=== PATIENT | female | born 1950 | race Two or more races ===

== ENCOUNTER 2016-12-30 15:48 | Emergency (ER) | payer MEDICARE, OTHER ==
[~2016-12-30] VITALS: Ht 160 cm; Wt 86.2 kg
--- NOTE | 2016-12-30 15:57 | NUR ---
PT BIB SELF C/O LEFT 1ST GREAT TOE REDNESS/PAIN X 2 WEEKS CUT NAILS X 2 WEEKS AGO. PLACED ON MONITOR. GOWNED PT. AWAITING MD ORDER
--- NOTE | 2016-12-30 16:08 | NUR ---
FÉLIX CHRONIC CARE NURSE AT BEDSIDE FOR EVAL
--- NOTE | 2016-12-30 16:13 | NUR ---
RAC #20 IV ACCESS. BLOOD SAMPLE COLLECTED SENT TO LAB
--- NOTE | 2016-12-30 16:14 | NUR ---
EKG IN PROGRESS
[2016-12-30 16:18] LABS: HEMATOCRIT 50 % (33-45); HEMOGLOBIN 16.2 g/dL (11.5-14.8); MEAN CORPUSCULAR VOLUME 93 fL (82-100); RED BLOOD CELL COUNT(AUTO) 5.37 MIL/uL (4.0-5.2); WHITE BLOOD COUNT (AUTO) 8.7 K/uL (4.3-11.0)
[2016-12-30 16:19] LABS: BASOPHILS % (AUTO) 0.7 % (0.0-2.0); EOSINOPHILS % (AUTO) 1.5 % (0.0-6.0); LYMPHOCYTES % (AUTO) 36.3 % (20.0-44.0); MEAN CORPUSCULAR HEMOGLOBIN 30 PG (26.0-33.0); MEAN CORPUSCULAR HGB CONC 33 g/dl (31.0-36.0); MONOCYTES % (AUTO) 7.6 % (2.0-12.0); NEUTROPHILS % (AUTO) 53.9 % (43.0-81.0); PLATELET COUNT (AUTO) 256 /CMM (150-450); RDW COEFFICIENT OF VARIATION 12.2 (11.5-15.0)
[2016-12-30 16:20] LABS: BASOPHILS # (AUTO) 0.1 /CMM (0.0-0.2); EOSINOPHILS # (AUTO) 0.1 /CMM (0.0-0.7); LYMPHOCYTES # (AUTO) 3.1 /CMM (0.8-4.8); MONOCYTES # (AUTO) 0.7 /CMM (0.1-1.30); NEUTROPHILS # (AUTO) 4.7 /CMM (1.8-8.9)
--- NOTE | 2016-12-30 16:24 | NUR ---
SSIS ETL DEVELOPER AT BEDSIDE
[2016-12-30 16:31] LABS: INR 0.95 (0.87-1.13); PROTHROMBIN TIME 9.9 SECS (9.5-12.7)
--- NOTE | 2016-12-30 16:32 | NUR ---
URINE SAMPLE COLLECTED SENT TO LAB
--- NOTE | 2016-12-30 16:33 | NUR ---
PT GETTING ULTRA SOUND BEFORE CT SCAN.
[2016-12-30 16:34] LABS: ALANINE AMINOTRANSFERASE 16 U/L (12-78); ALBUMIN 3.6 g/dL (3.4-5.0); ALKALINE PHOSPHATASE 96 U/L (46-116); ASPARTATE AMINOTRANSFERASE 11 U/L (15-37); BILIRUBIN,DIRECT 0.1 mg/dL (0.0-0.2); BILIRUBIN,TOTAL 0.5 mg/dL (0.2-1.0); CALCIUM, SERUM 9.4 mg/dL (8.5-10.1); CARBON DIOXIDE 27 mmol/L (21-32); CHLORIDE 98 mmol/L (98-107); POTASSIUM 4.5 mmol/L (3.5-5.1); SODIUM SERUM 134 mmol/L (136-145); TOTAL PROTEIN, SERUM 7.8 g/dL (6.4-8.2); UREA NITROGEN, BLOOD 20 mg/dL (7-18)
[2016-12-30 16:35] LABS: TROPONIN I < 0.017 ng/mL (0.00-0.056)
[2016-12-30 17:06] LABS: GLUCOSE 550 mg/dL (74-106)
[2016-12-30 17:11] LABS: APPEARANCE,URINE CLOUDY (CLEAR); BILIRUBIN,URINE NEGATIVE (NEGATIVE); BLOOD, URINE 1+ Ery/uL (NEGATIVE); COLOR,URINE YELLOW (YELLOW); KETONES,URINE TRACE (NEGATIVE); LEUKOCYTE ESTERASE ,URINE 1+ (NEGATIVE); NITRITE, URINE NEGATIVE (NEGATIVE); PROTEIN,URINE NEGATIVE (NEGATIVE); UGLUCOSE 3+ mg/dL (NEGATIVE); UROBILINOGEN,URINE 0.2 EU/dL (0.2)
[2016-12-30 17:21] LABS: BACTERIA,URINE Many /HPF (None Seen); RBC,URINE NONE SEEN /HPF (0-2); SQUAMOUS EPITHELIAL CELL,UR Few /HPF (None Seen); WBC,URINE TOO NUMEROUS TO COUN /HPF (0-3)
[2016-12-30 18:00] VITALS: BP 125/78
== END 2016-12-30 18:00 | disposition home or self-care (01) ==
LOC: ER 15:50
DX: L03.032 Cellulitis of left toe (principal); E11.65 Type 2 diabetes mellitus with hyperglycemia; N39.0 Urinary tract infection, site not specified; I10 Essential (primary) hypertension; R51 Headache
CPT/HCPCS: 36415; 70450; 71010; 76705; 80048; 80076; 81001; 84484; 85025; 85730; 87086; 93005; 99285; A4606; 81000-TC; 87186-TC; Z7610

== ENCOUNTER 2018-08-27 14:44 | Emergency (ER) | payer MEDICARE, OTHER ==
[~2018-08-27] VITALS: Ht 160 cm; Wt 90.3 kg
[2018-08-27 14:44] VITALS: BP 101/60
== END 2018-08-27 16:20 | disposition home or self-care (01) ==
LOC: ER 14:49
DX: S02.5XXA Fracture of tooth (traumatic), initial encounter for closed fracture (principal); K02.9 Dental caries, unspecified; E11.9 Type 2 diabetes mellitus without complications; I10 Essential (primary) hypertension; X58.XXXA Exposure to other specified factors, initial encounter; Y93.89 Activity, other specified; Y92.89 Other specified places as the place of occurrence of the external cause; Y99.8 Other external cause status

== ENCOUNTER 2020-02-07 10:32 | Inpatient (IN) | payer MEDICARE, OTHER ==
[~2020-02-07] VITALS: Ht 162.6 cm; Wt 82.1 kg
--- NOTE | 2020-02-07 10:35 | NUR ---
PT BIB DAUGHTER FROM HOME C/O DIZZINESS FOR 2 WEEKS, PT IS AAOX4, NOT IN RESPIRATORY DISTRESS, V/S STABLE, KEPT RESTED AND COMFORTABLE. WILL CONTINUE TO MONITOR.
--- NOTE | 2020-02-07 10:45 | NUR ---
SEEN AND EXAMINED BY .
--- NOTE | 2020-02-07 10:55 | NUR ---
IV LINE ESTABLISHED BLOOD DRAWN AND SENT TO LAB.
[2020-02-07] MEDS ORDERED: INSULIN REGULAR, HUMAN 100 UNIT/ML 10 ML VIAL ONE (10:56)
[2020-02-07 11:00] LABS: BASOPHILS # (AUTO) 0.1 /CMM (0.0-0.2); BASOPHILS % (AUTO) 1.1 % (0.0-2.0); EOSINOPHILS % (AUTO) 1.4 % (0.0-6.0); HEMATOCRIT 44 % (33-45); HEMOGLOBIN 14.5 g/dL (11.5-14.8); LYMPHOCYTES # (AUTO) 2.7 /CMM (0.8-4.8); LYMPHOCYTES % (AUTO) 37.6 % (20.0-44.0); MEAN CORPUSCULAR HGB CONC 33 g/dl (31.0-36.0); MEAN CORPUSCULAR VOLUME 93 fL (82-100); MONOCYTES # (AUTO) 0.6 /CMM (0.1-1.30); MONOCYTES % (AUTO) 8.8 % (2.0-12.0); NEUTROPHILS # (AUTO) 3.6 /CMM (1.8-8.9); NEUTROPHILS % (AUTO) 51.1 % (43.0-81.0); PLATELET COUNT (AUTO) 219 /CMM (150-450); RED BLOOD CELL COUNT(AUTO) 4.71 MIL/uL (4.0-5.2); WHITE BLOOD COUNT (AUTO) 7.1 K/uL (4.3-11.0)
[2020-02-07] MEDS ORDERED: INSULIN REGULAR, HUMAN 100 UNIT/ML 10 ML VIAL SQ ONE (11:00)
[2020-02-07] MEDS ORDERED: IV NS 0.9% 1,000 ML BAG IV ONE (11:00)
--- NOTE | 2020-02-07 11:02 | NUR ---
CALLED MELLISA [phone] HE WILL BE PAGED.
--- NOTE | 2020-02-07 11:15 | NUR ---
MELLISA SPEAKING WITH Remy FRIEND
[2020-02-07 11:18] LABS: CALCIUM, SERUM 9.2 mg/dL (8.5-10.1); CARBON DIOXIDE 24 mmol/L (21-32); CHLORIDE 97 mmol/L (98-107); CREATININE 1.1 mg/dL (0.6-1.3); SODIUM SERUM 132 mmol/L (136-145); UREA NITROGEN, BLOOD 27 mg/dL (7-18)
[2020-02-07 11:19] LABS: GLUCOSE 507 mg/dL (74-106)
--- NOTE | 2020-02-07 11:45 | NUR ---
REPORT GIVEN TO JESSIE KRUSE FOR ELIAS.
--- NOTE | 2020-02-07 12:00 | NUR ---
URINAL GIVEN BUT UNABLE TO PROVIDE URINE SPECIMEN THIS TIME.
--- NOTE | 2020-02-07 12:55 | NUR ---
ADMITTED TO FLOOR,SEEMS ALERT,STATES WEAK AND HAS NOT AMBULATED FOR A FEW DAYS,POOR HISTORIAN,CALLED DTR.AND SHE WELL POOR HISTORIAN.
[2020-02-07] MEDS ORDERED: ACETAMINOPHEN 325 MG TABLET PO PRN (14:30)
[2020-02-07 14:45] VITALS: BP 137/76
[2020-02-07] MEDS: LOSARTAN POTASSIUM 50 MG TABLET PO SCH (15:27)
[2020-02-07] MEDS: IV NS 0.9% 1,000 ML IV PRN (15:27)
[2020-02-07] MEDS: PANTOPRAZOLE 40 MG TABLET.DR PO SCH (15:27)
[2020-02-07 15:30] LABS: CHOLESTEROL 208 mg/dL (<200); HDL CHOLESTEROL 51 mg/dL (40-60); LDL 135 mg/dL (0-99); TRIGLYCERIDES 146 mg/dL (30-150)
[2020-02-07] MEDS ORDERED: DEXTROSE 50%-WATER 50 ML DISP.SYRIN IV PRN (15:30)
[2020-02-07 16:00] VITALS: BP 103/57
[2020-02-07] MEDS ORDERED: ONDANSETRON HCL/PF 4 MG/2 ML VIAL IVP PRN (16:00)
[2020-02-07] MEDS: BLOOD SUGAR DIAGNOSTIC 1 EACH STRIP IN SCH ×2 (17:50→22:27)
[2020-02-07] MEDS: METFORMIN 500 MG TABLET PO SCH (17:56)
[2020-02-07] MEDS: INSULIN REGULAR, HUMAN 100 UNIT/ML 3 ML VIAL SQ PRN ×2 (17:58→22:27)
--- NOTE | 2020-02-07 18:45 | NUR ---
FREELANCE COPYWRITER REPORTS NO VOID SINCE ADMISSION TO FLOOR AT 1300.PT. STATES NO PRESSURE TO VOID.PLACED ON BEDPAN.RN HOWIE SHIFT TO CHECK PT. WITH BLADDER SCANNER.
--- NOTE | 2020-02-07 19:30 | NUR ---
MS RN OPENING NOTES PATIENT AWAKE IN BED. A/OX4. ON RA. NO S/S OF ACUTE RESPIRATORY DISTRESS; BREATHING IS EVEN AND UNLABORED. NO C/O PAIN AT THIS TIME. IV PRESENT ON RIGHT HAND, SIZE 20, INTACT & PATENT WITH NS RUNNING AT 100 ML/HR. SAFETY MEASURES IN PLACE AND PATIENT'S NEED MET. BED LOCKED, ALARM ON, SIDE RAILS X2, CALL LIGHT WITHIN REACH. WILL CONTINUE TO MONITOR.
[2020-02-07 20:00] VITALS: BP_SYST 101; BP_DIAS 51; BP_DIAS 57
[2020-02-07 20:51] LABS: BASOPHILS # (AUTO) 0.1 /CMM (0.0-0.2); BASOPHILS % (AUTO) 0.7 % (0.0-2.0); EOSINOPHILS % (AUTO) 2.1 % (0.0-6.0); HEMATOCRIT 39 % (33-45); HEMOGLOBIN 13.2 g/dL (11.5-14.8); LYMPHOCYTES # (AUTO) 3.5 /CMM (0.8-4.8); LYMPHOCYTES % (AUTO) 49.1 % (20.0-44.0); MEAN CORPUSCULAR HGB CONC 33 g/dl (31.0-36.0); MEAN CORPUSCULAR VOLUME 91 fL (82-100); MONOCYTES # (AUTO) 0.6 /CMM (0.1-1.30); MONOCYTES % (AUTO) 8.5 % (2.0-12.0); NEUTROPHILS # (AUTO) 2.8 /CMM (1.8-8.9); NEUTROPHILS % (AUTO) 39.6 % (43.0-81.0); PLATELET COUNT (AUTO) 201 /CMM (150-450); RED BLOOD CELL COUNT(AUTO) 4.33 MIL/uL (4.0-5.2); WHITE BLOOD COUNT (AUTO) 7.1 K/uL (4.3-11.0)
[2020-02-07 21:23] LABS: CALCIUM, SERUM 8.6 mg/dL (8.5-10.1); CREATININE 1.2 mg/dL (0.6-1.3); MAGNESIUM 1.9 mg/dL (1.8-2.4); POTASSIUM 3.7 mmol/L (3.5-5.1)
[2020-02-07] MEDS ORDERED: INSULIN GLARGINE, 100 UNIT/ML CARTRIDGE SQ SCH (22:00)
[2020-02-07] MEDS: ATORVASTATIN 10 MG TABLET PO SCH (22:20)
--- NOTE | 2020-02-08 00:30 | NUR ---
MS RN NOTES ASSISTED PATIENT TO BATHROOM. PATIENT HAD AN EPISODE OF INCONTINENCE; PATIENT ASKED TO THROW AWAY UNDERWEAR IN TRASH. DOCUMENTED IN BELONGINGS LIST
[2020-02-08] MEDS: IV NS 0.9% 1,000 ML IV PRN ×2 (01:20→19:34)
[2020-02-08 02:43] LABS: APPEARANCE,URINE SL CLOUDY (CLEAR); BILIRUBIN,URINE NEGATIVE (NEGATIVE); BLOOD, URINE NEGATIVE Ery/uL (NEGATIVE); COLOR,URINE YELLOW (YELLOW); KETONES,URINE NEGATIVE (NEGATIVE); LEUKOCYTE ESTERASE ,URINE NEGATIVE (NEGATIVE); NITRITE, URINE NEGATIVE (NEGATIVE); PH,URINE 6.5 (5.0-8.0); PROTEIN,URINE NEGATIVE (NEGATIVE); UGLUCOSE >=1000 mg/dL (NEGATIVE); UROBILINOGEN,URINE 0.2 EU/dL (0.2)
[2020-02-08 02:53] LABS: BACTERIA,URINE Few /HPF (None Seen); RBC,URINE 0-2 /HPF (0-2); SQUAMOUS EPITHELIAL CELL,UR Few /HPF (None Seen)
[2020-02-08] MEDS: BLOOD SUGAR DIAGNOSTIC 1 EACH STRIP IN SCH ×4 (06:48→21:04)
[2020-02-08] MEDS: INSULIN REGULAR, HUMAN 100 UNIT/ML 3 ML VIAL SQ PRN ×4 (06:50→21:06)
--- NOTE | 2020-02-08 07:30 | NUR ---
RN OPENING NOTES RECEIVED PATIENT IN BED RESTING. A/OX4, ABLE TO MAKE NEEDS KNOWN. NOT IN ANY FORM OF DISTRESS. NO SOB. DENIED PAIN OR DISCOMFORT AT THIS TIME. IV ACCESS INTACT AND PATENT. KEPT PATIENT SAFE AND COMFORTABLE. BED IN LOW/LOCKED POSITION, SIDERAILS UPX2, CALL LIGHT IN REACH. WILL CONT TO MONITOR ACCORDINGLY.
--- NOTE | 2020-02-08 07:41 | NUR ---
MS RN CLOSING NOTES PATIENT AWAKE IN BED. A/OX4. ON RA. NO S/S OF ACUTE RESPIRATORY DISTRESS; BREATHING IS EVEN AND UNLABORED. NO C/O PAIN AT THIS TIME. IV PRESENT ON RIGHT HAND, SIZE 20, INTACT & PATENT WITH NS RUNNING AT 100 ML/HR. SAFETY MEASURES IN PLACE AND PATIENT'S NEED MET. BED LOCKED, ALARM ON, SIDE RAILS X2, CALL LIGHT WITHIN REACH. WILL ENDORSE TO DAY SHIFT RN PLAN OF CARE.
[2020-02-08 08:00] VITALS: BP 134/68
[2020-02-08] MEDS: METFORMIN 500 MG TABLET PO SCH (08:35)
[2020-02-08] MEDS: PANTOPRAZOLE 40 MG TABLET.DR PO SCH (08:35)
[2020-02-08] MEDS: LOSARTAN POTASSIUM 50 MG TABLET PO SCH (08:35)
--- NOTE | 2020-02-08 14:00 | NUR ---
RN NOTES PATIENT REFUSED TO PUT DVT PUMPS ON. EXPLAINED RISK AND BENEFITS BUT STILL REFUSED.
[2020-02-08 16:00] VITALS: BP 130/84
[2020-02-08] MEDS ORDERED: ENOXAPARIN SODIUM 40 MG/0.4 ML DISP.SYRIN SQ SCH (19:00)
--- NOTE | 2020-02-08 19:25 | NUR ---
MS RN OPEN NOTES PATIENT IS TALKING ON THE PHONE IN BED. A/O X4. ON RA, NO SOB/ ACUTE RESPIRATORY DISTRESS NOTED. APPEARS COMFORTABLE/ NO COMPLAINTS OF PAIN AT THE MOMENT. BED IS IN LOWEST LOCKED POSITION WITH SIDE RAILS UP X2, SEMI FOWLERS. CALL LIGHT IS WITHIN REACH. WILL CONTINUE TO MONITOR.
--- NOTE | 2020-02-08 19:30 | NUR ---
RN CLOSING NOTES PATIENT IN STABLE CONDITION. ALL NEEDS ATTENDED AND PROVIDED. ALL DUE MEDS GIVEN ORDERED. ASSISTED WITH ADLS. KEPT PATIENT SAFE AND COMFORTABLE. BED IN LOW/LOCKED POSITION, SIDERAILS UPX 2. CALL LIGHT IN REACH. ENDORSED ACCORDINGLY.
[2020-02-08 20:00] VITALS: BP 138/72
[2020-02-08] MEDS: ATORVASTATIN 10 MG TABLET PO SCH (21:04)
[2020-02-08] MEDS ORDERED: INSULIN GLARGINE, 100 UNIT/ML CARTRIDGE SQ SCH (22:00)
[2020-02-09 06:45] LABS: BASOPHILS # (AUTO) 0.1 /CMM (0.0-0.2); BASOPHILS % (AUTO) 0.7 % (0.0-2.0); EOSINOPHILS % (AUTO) 4.1 % (0.0-6.0); HEMATOCRIT 42 % (33-45); LYMPHOCYTES # (AUTO) 3.6 /CMM (0.8-4.8); LYMPHOCYTES % (AUTO) 48.7 % (20.0-44.0); MEAN CORPUSCULAR HGB CONC 33 g/dl (31.0-36.0); MEAN CORPUSCULAR VOLUME 92 fL (82-100); MONOCYTES # (AUTO) 0.6 /CMM (0.1-1.30); MONOCYTES % (AUTO) 7.5 % (2.0-12.0); NEUTROPHILS # (AUTO) 2.9 /CMM (1.8-8.9); PLATELET COUNT (AUTO) 207 /CMM (150-450); RED BLOOD CELL COUNT(AUTO) 4.57 MIL/uL (4.0-5.2); WHITE BLOOD COUNT (AUTO) 7.4 K/uL (4.3-11.0)
--- NOTE | 2020-02-09 06:46 | NUR ---
MS RN CLOSE NOTES PATIENT IS LAYING IN BED. A/OX4. ON RA, NO SOB/ ACUTE RESPIRATORY DISTRESS NOTED. IV ON RIGHT HAND #20G IS PATENT AND INTACT RUNNING NS @50MLS/HR. PATIENT IS AMBULATORY WITH ASSIST. APPEARS COMFORTABLE/ NO COMPLAINTS OF PAIN AT THE MOMENT. ALL ACCUCHECKS DONE. BED IS IN LOWEST LOCKED POSITION WITH SIDE RAILS UP X2, SEMI FOWLERS. CALL LIGHT IS WITHIN REACH. WILL ENDORSE TO AM NURSE.
[2020-02-09] MEDS: BLOOD SUGAR DIAGNOSTIC 1 EACH STRIP IN SCH ×2 (06:50→12:42)
[2020-02-09 06:52] LABS: CALCIUM, SERUM 9.1 mg/dL (8.5-10.1); CREATININE 0.8 mg/dL (0.6-1.3); POTASSIUM 3.5 mmol/L (3.5-5.1)
--- NOTE | 2020-02-09 07:30 | NUR ---
MS JESSIE Open Notes Patient is in bed A/O x 4 calm and cooperative. No signs of distress and no shortness of breath. IV R hand #20 intact and patent infusing NS at 50 mls/hr. No complaints of pain at this moment. Safety measures are applied bed is in low position side rails up x 2 for safety. Call light is within reach. Will continue to monitor.
[2020-02-09 08:00] VITALS: BP 140/71
[2020-02-09] MEDS: PANTOPRAZOLE 40 MG TABLET.DR PO SCH (08:41)
[2020-02-09 08:42] VITALS: BP 140/71
[2020-02-09] MEDS: LOSARTAN POTASSIUM 50 MG TABLET PO SCH (08:42)
[2020-02-09] MEDS ORDERED: METFORMIN 500 MG TABLET PO SCH (09:00)
[2020-02-09] MEDS: INSULIN REGULAR, HUMAN 100 UNIT/ML 3 ML VIAL SQ PRN (12:45)
--- NOTE | 2020-02-09 15:19 | NUR ---
RN MS NOTES PT AWAKE, ALERT AND ORIENTED, INDEPENDENT WITH ADL'S, DENIES PAIN, BREATHING PATTERN NORMAL, PT SEEN BY DR. PAK, DISCHARGE ORDER GIVEN, DISCHARGE AND MEDICATION INSTRUCTIONS PROVIDED TO PT AND DAUGHTER LEENA, PT TO SEE DR PAK IN 1-2 WEEKS FOR FOLLOW UP, VERBALIZED UNDERSTANDING, BELONGINGS ACCOUNTED FOR, DIRECTOR OF ELEMENTARY EDUCATION RICHARD ARRANGED FOR HOME HEALTH AT [facility], ASSISTED TO WHEELCHAIR, ASSISTED BY COMPENSATION EXPERT TO HOSPITAL LOBBY, PICKED UP BY DAUGHTER, LEFT VIA PRIVATE CAR IN STABLE CONDITION.
== END 2020-02-09 15:15 | disposition home health service (06) | DRG 638 ==
LOC: ER 10:34 → TELE 12:08 → MED 16:28
PROVIDERS: ADMIT Legal Medicine; ATTEND Legal Medicine
DX: E11.65 Type 2 diabetes mellitus with hyperglycemia (principal); E87.1 Hypo-osmolality and hyponatremia; I12.9 Hypertensive chronic kidney disease with stage 1 through stage 4 chronic kidney disease, or unspecified chronic kidney disease; E11.22 Type 2 diabetes mellitus with diabetic chronic kidney disease; N18.9 Chronic kidney disease, unspecified; I25.10 Atherosclerotic heart disease of native coronary artery without angina pectoris; Z91.19 Patient's noncompliance with other medical treatment and regimen; E11.40 Type 2 diabetes mellitus with diabetic neuropathy, unspecified; E11.319 Type 2 diabetes mellitus with unspecified diabetic retinopathy without macular edema; K21.9 Gastro-esophageal reflux disease without esophagitis; M19.90 Unspecified osteoarthritis, unspecified site
CPT/HCPCS: 36415; 71045-TC; 80048-TC; 80061-TC; 81000-TC; 82962-TC; 83735-TC; 84484-TC; 85025-TC; 85730-TC; 87081-TC; 87086-TC; 97110-TC; 97116-TC; 97530-TC; G0378; J1650; J1815; J7030

== ENCOUNTER 2020-11-24 15:20 | Emergency (ER) | payer MEDICARE, OTHER ==
[~2020-11-24] VITALS: Ht 160 cm; Wt 93.9 kg
[2020-11-24 15:30] VITALS: BP 107/58
--- NOTE | 2020-11-24 15:34 | NUR ---
AT BEDSIDE FOR EVAL.
--- NOTE | 2020-11-24 15:36 | NUR ---
BIB SELF C/O LEFT EAR RASH "I JUST NOTICED EARLIER THAT THERE'S A RASH INSIDE MY EAR". DENIES CHANGE IN HER HEARING. RATES LEFT EAR PAIN 5/10. NO DISCHANGE NOTED. WILL CONTINUE TO MONITOR THE PATIENT.
[2020-11-24] MEDS ORDERED: CEPH500C2 PO (15:38)
[2020-11-24] MEDS ORDERED: NEOM10DR11 OT (15:38)
--- NOTE | 2020-11-24 15:48 | NUR ---
Patient discharged to home in stable condition. Written and verbal after care instructions given. Patient verbalizes understanding of instruction.
== END 2020-11-24 15:49 | disposition home or self-care (01) ==
LOC: ER 15:25
DX: H60.91 Unspecified otitis externa, right ear (principal); E11.9 Type 2 diabetes mellitus without complications; I10 Essential (primary) hypertension; Z79.899 Other long term (current) drug therapy

== ENCOUNTER 2022-01-31 19:06 | Emergency (ER) | payer MEDICARE, OTHER ==
[~2022-01-31] VITALS: Ht 162.6 cm; Wt 88.9 kg
[~2022-01-31 19:06] MED LIST: CEPH500C2 PO; NEOM10DR11 OT
--- NOTE | 2022-01-31 20:15 | NUR ---
BIBS C/O LOSING FEELING IN TONGUE, AND INABILITY TO SPEAK PROPERLY X1DAY. PATIENT ALERT AND ORIENTED X3. USUALLY WALKS WITH WALKER, BROUGHT IN BY WHEELCHAIR. IN BED 02 AWAITING MD TABARES.
--- NOTE | 2022-01-31 20:44 | NUR ---
IV CANNULA G20 INSERTED ON RIGHT AC. BLOOD DRAWN AND SENT TO LAB
[2022-01-31] MEDS ORDERED: IV NS 0.9% 1,000 ML IV ONE (21:00)
[2022-01-31 21:20] LABS: BASOPHILS # (AUTO) 0.1 K/uL (0.0-0.2); BASOPHILS % (AUTO) 0.8 % (0.0-2.0); EOSINOPHILS % (AUTO) 4.3 % (0.0-6.0); HEMATOCRIT 41 % (33-45); HEMOGLOBIN 13.8 g/dL (11.5-14.8); LYMPHOCYTES # (AUTO) 2.4 K/uL (0.8-4.8); LYMPHOCYTES % (AUTO) 28.6 % (20.0-44.0); MEAN CORPUSCULAR HGB CONC 34 g/dl (31.0-36.0); MEAN CORPUSCULAR VOLUME 92 fL (82-100); MONOCYTES # (AUTO) 0.6 K/uL (0.1-1.30); MONOCYTES % (AUTO) 7.6 % (2.0-12.0); NEUTROPHILS # (AUTO) 4.8 K/uL (1.8-8.9); NEUTROPHILS % (AUTO) 58.7 % (43.0-81.0); PLATELET COUNT (AUTO) 307 K/uL (150-450); RED BLOOD CELL COUNT(AUTO) 4.49 MIL/uL (4.0-5.2); WHITE BLOOD COUNT (AUTO) 8.3 K/uL (4.3-11.0)
[2022-01-31 21:29] LABS: CREATININE 1.1 mg/dL (0.6-1.3); POTASSIUM 4.7 mmol/L (3.5-5.1)
--- NOTE | 2022-01-31 21:41 | NUR ---
PATIENT CAME FROM CT DEPT
--- NOTE | 2022-01-31 22:45 | NUR ---
Patient discharged to home in stable condition. Written and verbal after care instructions given. Patient verbalizes understanding of instruction.
[2022-01-31 22:47] VITALS: BP 131/60
== END 2022-01-31 22:47 | disposition home or self-care (01) ==
LOC: ER 19:13
DX: R47.9 Unspecified speech disturbances (principal); I10 Essential (primary) hypertension; E11.9 Type 2 diabetes mellitus without complications
CPT/HCPCS: 70450; 80048; 80307; 82962; 85025; 96360; 99284; J7030; 36415

== ENCOUNTER 2022-10-12 01:39 | Inpatient (IN) | payer MEDICARE, OTHER ==
[~2022-10-12] VITALS: Ht 160 cm; Wt 85.7 kg
--- NOTE | 2022-10-12 01:55 | NUR ---
DR LUCY HOYT AT PT'S BEDSIDE FOR EVAL
[2022-10-12] MEDS ORDERED: IV NS 0.9% 1,000 ML BAG IV ONE (02:00)
[2022-10-12] MEDS ORDERED: ONDANSETRON HCL/PF 4 MG/2 ML VIAL IVP ONE (02:00)
[2022-10-12] MEDS ORDERED: ONDANSETRON HCL/PF 4 MG/2 ML VIAL ONE (03:01)
--- NOTE | 2022-10-12 03:01 | NUR ---
BIBDAUGHTER C/O N/V AND EPISODE OF SLURRED SPEECH & CONFUSION @1999 -FACIAL DROOP -EXTREMITY WEAKNESS PT AAOX3 AT TRIAGE, YI SPEAKING, DAUGHTER AT BEDSIDE. PT ATTACHED TO MONITOR AND PULSE OX. AWAITING MD TABARES.
--- NOTE | 2022-10-12 03:13 | NUR ---
RFA #20G S/L BLOOD COLLECTED AND SENT TO LAB
--- NOTE | 2022-10-12 03:15 | NUR ---
COVID ANTIGEN SWAB COLLECTED AND SENT TO LAB
--- NOTE | 2022-10-12 03:17 | NUR ---
PT TAKEN TO CT VIA MITCH
--- NOTE | 2022-10-12 03:19 | NUR ---
BROUGHT TO CT DEPT WITH JESSIE WILKERSON
[2022-10-12 03:29] LABS: BASOPHILS # (AUTO) 0.1 K/uL (0.0-0.2); BASOPHILS % (AUTO) 0.6 % (0.0-2.0); HEMATOCRIT 39 % (33-45); LYMPHOCYTES # (AUTO) 1.9 K/uL (0.8-4.8); LYMPHOCYTES % (AUTO) 22.2 % (20.0-44.0); MEAN CORPUSCULAR HGB CONC 33 g/dl (31.0-36.0); MEAN CORPUSCULAR VOLUME 92 fL (82-100); MONOCYTES # (AUTO) 0.4 K/uL (0.1-1.30); NEUTROPHILS # (AUTO) 5.9 K/uL (1.8-8.9); NEUTROPHILS % (AUTO) 70.2 % (43.0-81.0); PLATELET COUNT (AUTO) 301 K/uL (150-450); RED BLOOD CELL COUNT(AUTO) 4.27 MIL/uL (4.0-5.2); WHITE BLOOD COUNT (AUTO) 8.4 K/uL (4.3-11.0)
--- NOTE | 2022-10-12 03:40 | NUR ---
PT RETURNED TO ER BED [address]
[2022-10-12 03:46] LABS: CALCIUM, SERUM 9.1 mg/dL (8.5-10.1); CARBON DIOXIDE 29 mmol/L (21-32); CHLORIDE 101 mmol/L (98-107); CREATININE 1.5 mg/dL (0.6-1.3); GLUCOSE 253 mg/dL (74-106); POTASSIUM 4.5 mmol/L (3.5-5.1); SODIUM SERUM 139 mmol/L (136-145); UREA NITROGEN, BLOOD 29 mg/dL (7-18)
[2022-10-12 03:52] LABS: ALANINE AMINOTRANSFERASE 15 U/L (12-78); ALKALINE PHOSPHATASE 80 U/L (46-116); ASPARTATE AMINOTRANSFERASE 14 U/L (15-37); BILIRUBIN,DIRECT 0.1 mg/dL (0.0-0.2); BILIRUBIN,TOTAL 0.4 mg/dL (0.2-1.0); TOTAL PROTEIN, SERUM 7.3 g/dL (6.4-8.2)
[2022-10-12 04:13] LABS: THYROID STIMULATING HORMONE 4.335 uIU/mL (0.358-3.74)
--- NOTE | 2022-10-12 04:53 | NUR ---
URINE COLLECTED AND SENT TO LAB
[2022-10-12 05:14] LABS: BILIRUBIN,URINE NEGATIVE (NEGATIVE); COLOR,URINE YELLOW (YELLOW); LEUKOCYTE ESTERASE ,URINE NEGATIVE (NEGATIVE); NITRITE, URINE NEGATIVE (NEGATIVE); PROTEIN,URINE 3+ mg/dl (NEGATIVE); UGLUCOSE 1+ mg/dL (NEGATIVE); UROBILINOGEN,URINE 0.2 EU/dL (0.2)
[2022-10-12 05:16] LABS: BACTERIA,URINE Few /HPF (None Seen); SQUAMOUS EPITHELIAL CELL,UR Many /HPF (None Seen)
--- NOTE | 2022-10-12 05:58 | NUR ---
COVID SWAB DONE AND SENT TO LAB
--- NOTE | 2022-10-12 07:41 | NUR ---
PT IN BED ON 2L NC TOLORATING WELL NO SOB OR PAIN ON ASSESSMENT. BILATERAL STUD DAIRY CATTLE FARMER STRENGTH +5 ABLE TO WITHSTAND DOWNWARD FORCE. FACIAL DROP NOT SEEN ON REASSESSMENT. PT CAN MOVE BOTH LOWER EXTREMITES Hx OF DIABETIC NEUROPATHY STATES SHE CAN NOT FEEL PRESSURE ON FEET. V/S WNL HR99, 96% O2SAT, 149/[address] RESULTS.
--- NOTE | 2022-10-12 08:01 | NUR ---
US TECH AT BEDSIDE.
--- NOTE | 2022-10-12 09:06 | NUR ---
[facility] CALLED, STAFF MINE WARFARE OFFICER PAGED.
--- NOTE | 2022-10-12 09:28 | NUR ---
GOT BED 310-1 ADMITTING INFORMED.
[2022-10-12] MEDS ORDERED: DEXTROSE 50%-WATER 50 ML DISP.SYRIN IV PRN (09:30)
[2022-10-12] MEDS ORDERED: ONDANSETRON HCL/PF 4 MG/2 ML VIAL IVP PRN (09:30)
[2022-10-12] MEDS ORDERED: IV NS 0.9% 1,000 ML IV ONE (09:30)
[2022-10-12] MEDS ORDERED: hydrALAZINE HCL IV 20 MG VIAL IV PRN (09:30)
[2022-10-12] MEDS ORDERED: MORPHINE SULFATE INJ 2 MG/ML DISP.SYRIN IV PRN (09:30)
[2022-10-12] MEDS ORDERED: ACETAMINOPHEN 325 MG TABLET PO PRN (09:30)
[2022-10-12] MEDS ORDERED: Z GUARD REMEDY 4 OZ OINT TP PRN (09:30)
[2022-10-12] MEDS ORDERED: METF-441 PO (09:32)
--- NOTE | 2022-10-12 09:38 | NUR ---
MRSA SWAB TAKEN AND SENT TO LAB
--- NOTE | 2022-10-12 09:38 | NUR ---
SAVANNAH ROMAN REPORT FOR INPATIENT AMDISSION.
[2022-10-12 10:00] VITALS: BP 135/72
--- NOTE | 2022-10-12 10:00 | NUR ---
WINDOWS ADMIN ADMITTING NOTES: ADMITTED A 72YO FEMALE PATIENT FROM ER, ACCOMPANIED BY RN GIANCARLO TRANSFERRED VIA GURNEY. A/O X3-4 IRANIAN SPEAKING BUT ABLE TO COMMUNICATE AND UNDERSTAND SWEDISH. NO SOB OR CARDIAC DISTRESS NO COMPLAIN OF PAIN AT THIS TIME, NO EPISODES OF NAUSEA AND VOMITING. DAUGHTERS AT BED SIDE. ON HEEL EMERY BUFFER: CURRENT READING OF SINUS RHYTHM @89BPM. IV ACCESS ON RFA GAUGE 20 PATENT, INTACT AND INFUSING NS @75ML/HR. RECEIVED A CALL FROM RADIOLOGY DEPT TO GET A CONSENT FOR HIDA SCAN, MS STERN /CARMELITA (DAUGHTER) SIGNED CONSENT AND VERBALIZED UNDERSTANDING. PT WILL NOT HAVE MORPHINE IV AND WILL MAINTAIN NPO UNTIL FURTHER ORDERS. ABDOMEN SOFT AND NOT RIGID. SAFETY MEASURES INITIATED: BED LOCKED AND IN LOWEST POSITION, SIDE RAILS UP X 2 CALL LIGHT IN EASY REACH FOR HELP AND WILL MONITOR ACCORDINGLY.
[2022-10-12] MEDS: IV NS 0.9% 1,000 ML IV SCH ×2 (10:06→22:50)
[2022-10-12] MEDS: BLOOD SUGAR DIAGNOSTIC 1 EACH STRIP VI SCH ×4 (10:16→22:20)
[2022-10-12] MEDS: CEFEPIME 2 GM in IV D5W 100 ML IV SCH (10:47)
[2022-10-12] MEDS: *INSULIN REGULAR(HUMULIN R)HUM 100 UNIT/ML VIAL SQ PRN (11:26)
[2022-10-12 12:00] VITALS: BP_SYST 128; BP_SYST 168; BP_DIAS 69; BP_DIAS 83
--- NOTE | 2022-10-12 13:08 | NUR ---
NM HIDA SCAN WAS COMPLETED:TECH:RB
[2022-10-12 16:00] VITALS: BP_SYST 116; BP_SYST 138; BP_DIAS 66; BP_DIAS 70
[2022-10-12] MEDS: INSULIN REGULAR, HUMAN 100 UNIT/ML 3 ML VIAL SQ PRN (17:42)
--- NOTE | 2022-10-12 18:47 | NUR ---
COURSE DEVELOPER CLOSING NOTES: PT IN BED ASLEEP, EASILY AROUSED WITH STIMULI. PT MALTESE SPEAKING ABLE TO MAKE NEEDS KNOW. NO SOB OR CARDIAC DISTRESS NOTED, NO COMPLAIN OF PAIN, NAUSEA AND VOMITING. ON O2 INHALATION @2LPM VIA NC AND TOLERATING WELL. ON WEATHERIZATION TECHNICIAN WITH CURRENT READING OF: SINUS RHYTHM @70 BPM. ON BLOOD SUGAR MONITORING, NO EPISODES OF HYPO OR HYPERGLYCEMIA NOTED. IV ACCESS ON RFA GAUGE 20 PATENT, INTACT AND FLUSHING NS 1L @ 75ML/HR. SAFETY MEASURES MAINTAINED: BED LOCKED AND IN LOWEST POSITION, SIDE RAILS UP X 2. CALL LIGHT IN EASY REACH FOR HELP. WILL MONITOR PT ACCORDINGLY. ENDORSED TO [employer] MAINFRAME SYSTEMS PROGRAMMER RN FOR CONTINUITY OF CARE.
--- NOTE | 2022-10-12 19:40 | NUR ---
FORENSICS ANALYST OPENING NOTES RECEIVED PT IN BED AWAKE, ALERT AND ORIENTED. A/0 X 4. FAMILY AT BEDSIDE. OMANI SPEAKING, ABLE TO MAKE NEEDS KNOW. NO SOB OR CARDIAC DISTRESS NOTED. NO COMPLAIN OF PAIN, NAUSEA AND VOMITING. ON O2 INHALATION @2LPM VIA NC, BREATHING EVEN AND UNLABORED, NO DISTRESS OR SOB NOTED AT THIS TIME. ON ENTERPRISE SALES EXECUTIVE WITH CURRENT READING OF SR @70. IV ACCESS ON RFA GAUGE 20 PATENT, INTACT RUNNING NS @ 75ML/HR, INFUSING WELL. SAFETY MEASURES MAINTAINED WITH BED LOCK AND IN LOWEST POSITION. SIDE RAILS UP X 2. CALL LIGHT AND TRAY WITHIN EASY REACH. WILL CONTINUE WITH THE PLAN OF CARE.
[2022-10-12 20:00] VITALS: BP 137/77
[2022-10-12] MEDS: HEPARIN SODIUM, PORCINE 5000 UNITS/1 ML VIAL SQ SCH (21:56)
[2022-10-13] VITALS: BP 123/45
[2022-10-13 04:00] VITALS: BP 126/57
[2022-10-13 06:21] LABS: BASOPHILS % (AUTO) 0.9 % (0.0-2.0); EOSINOPHILS % (AUTO) 6.2 % (0.0-6.0); HEMATOCRIT 34 % (33-45); HEMOGLOBIN 11.1 g/dL (11.5-14.8); LYMPHOCYTES # (AUTO) 0.6 K/uL (0.8-4.8); LYMPHOCYTES % (AUTO) 14.3 % (20.0-44.0); MEAN CORPUSCULAR HGB CONC 33 g/dl (31.0-36.0); MEAN CORPUSCULAR VOLUME 93 fL (82-100); MONOCYTES # (AUTO) 0.5 K/uL (0.1-1.30); MONOCYTES % (AUTO) 11.8 % (2.0-12.0); NEUTROPHILS % (AUTO) 66.8 % (43.0-81.0); PLATELET COUNT (AUTO) 255 K/uL (150-450); RED BLOOD CELL COUNT(AUTO) 3.63 MIL/uL (4.0-5.2); WHITE BLOOD COUNT (AUTO) 4.4 K/uL (4.3-11.0)
[2022-10-13 06:43] LABS: ALBUMIN 2.3 g/dL (3.4-5.0); BILIRUBIN,TOTAL 0.4 mg/dL (0.2-1.0); CALCIUM, SERUM 8.5 mg/dL (8.5-10.1); CREATININE 1.4 mg/dL (0.6-1.3); MAGNESIUM 1.6 mg/dL (1.8-2.4); PHOSPHORUS 4.4 mg/dL (2.5-4.9); POTASSIUM 4.1 mmol/L (3.5-5.1); TOTAL PROTEIN, SERUM 5.8 g/dL (6.4-8.2)
--- NOTE | 2022-10-13 07:00 | NUR ---
BELT PUNCHER OPENING NOTES: RECEIVED PT IN BED ASLEEP, EASILY AROUSED WITH STIMULI. PT MALAGASY SPEAKING ABLE TO MAKE NEEDS KNOW. NO SOB OR CARDIAC DISTRESS NOTED, NO COMPLAIN OF PAIN, NAUSEA AND VOMITING. ON O2 INHALATION @2LPM VIA NC AND TOLERATING WELL. ON PURCHASING MANAGER/SALES WITH CURRENT READING OF: SINUS RHYTHM @72 BPM. ON BLOOD SUGAR MONITORING, NO EPISODES OF HYPO OR HYPERGLYCEMIA NOTED. IV ACCESS ON RFA GAUGE 20 PATENT, INTACT AND FLUSHING NS 1L @ 75ML/HR. SAFETY MEASURES MAINTAINED: BED LOCKED AND IN LOWEST POSITION, SIDE RAILS UP X 2. CALL LIGHT IN EASY REACH FOR HELP. WILL MONITOR PT ACCORDINGLY.
[2022-10-13] MEDS: INSULIN REGULAR, HUMAN 100 UNIT/ML 3 ML VIAL SQ PRN ×3 (07:20→21:39)
[2022-10-13] MEDS: BLOOD SUGAR DIAGNOSTIC 1 EACH STRIP VI SCH ×4 (07:58→22:28)
[2022-10-13 08:00] VITALS: BP_SYST 155; BP_SYST 160; BP_DIAS 88; BP_DIAS 89
--- NOTE | 2022-10-13 08:00 | NUR ---
RN NOTES: PT'S BP IS ELEVATED 155/88, INFORMED DR PAK (NURSING STATION), MADE AWARE AND ORDERED THRU THE COMPUTER.
--- NOTE | 2022-10-13 08:10 | NUR ---
FRUIT AND VEGETABLE CLASSER CLOSING NOTES PT IN BED AWAKE, ALERT AND ORIENTED. A/0 X 4. FAMILY AT BEDSIDE. BULGARIAN SPEAKING, ABLE TO MAKE NEEDS KNOW. NO SOB OR CARDIAC DISTRESS NOTED. NO COMPLAIN OF PAIN, NAUSEA AND VOMITING. ON O2 INHALATION @2LPM VIA NC, BREATHING EVEN AND UNLABORED, NO DISTRESS OR SOB NOTED AT THIS TIME. ON BENZOL OPERATOR WITH CURRENT READING OF SR @70. IV ACCESS ON RFA GAUGE 20 PATENT, INTACT RUNNING NS @ 75ML/HR, INFUSING WELL. SAFETY MEASURES MAINTAINED WITH BED LOCK AND IN LOWEST POSITION. SIDE RAILS UP X 2. CALL LIGHT AND TRAY WITHIN EASY REACH. WILL ENDORSE TO THE NEXT SHIFT.
--- NOTE | 2022-10-13 08:38 | NUR ---
WOUND CARE CONSULT: PT PRESENTS WITH DISCOLORED LEFT 3RD TOENAIL WITHOUT DRAINAGE, ERYTHEMA OR TENDERNESS, PRESENT ON ADMISSION. CURRENT KYLEE SCORE IS 19.
[2022-10-13] MEDS ORDERED: CLONIDINE HCL 0.1 MG TABLET PO PRN (09:00)
[2022-10-13] MEDS: VALSARTAN 80 MG TABLET PO SCH (09:07)
[2022-10-13] MEDS: HEPARIN SODIUM, PORCINE 5000 UNITS/1 ML VIAL SQ SCH ×2 (09:09→21:18)
[2022-10-13] MEDS ORDERED: MAGNESIUM OXIDE 400 MG TABLET PO ONE (09:30)
[2022-10-13] MEDS: CEFEPIME 2 GM in IV D5W 100 ML IV SCH (09:35)
[2022-10-13 12:00] VITALS: BP_SYST 133; BP_SYST 170; BP_DIAS 80; BP_DIAS 87
[2022-10-13] MEDS: IV NS 0.9% 1,000 ML IV SCH (12:16)
--- NOTE | 2022-10-13 12:48 | NUR ---
RN NOTES: PATIENT I FOR MRI BRAIN, PATIENT STATED SHE'S CLAUSTROPHOBIC AND NEED SOMETHING FOR HER TO CALM DOWN. INFORMED DR PAK, AND HE ORDERED ATIVAN 1MG PO PRIOR TO PROCEDURE. ORDERS NOTED AND CARRIED OUT.
[2022-10-13] MEDS ORDERED: LORAZEPAM 1 MG TABLET PO ONE (13:00)
--- NOTE | 2022-10-13 13:02 | NUR ---
RN NOTES: SPOKE TO HAND MEAT SALTER MS AIXA THAT PT IS CLAUSTROPHOBIC AN NEEDSPRE MEDICATE PRIOR TO MRI. SHE STATED SHE WILL CALL ME 30MINS BEFORE GETTING THE PT SO WE CAN PRE MEDICATE THE PT. INFORMED FAMILY AT BED SIDE .
[2022-10-13] MEDS ORDERED: IV NS 0.9% 250 ML IV ONE (14:24)
[2022-10-13] MEDS ORDERED: IOHEXOL-350 100 ML VIAL IV ONE (14:24)
[2022-10-13 16:00] VITALS: BP 154/85
[2022-10-13] MEDS: *INSULIN REGULAR(HUMULIN R)HUM 100 UNIT/ML VIAL SQ PRN (17:32)
--- NOTE | 2022-10-13 18:52 | NUR ---
SENIOR CLINICIAN CLOSING NOTES: PT IN BED AWAKE ALERT AND ORIENTED X 3. PT HEBREW SPEAKING ABLE TO MAKE NEEDS KNOWN. NO SOB OR CARDIAC DISTRESS NOTED, NO COMPLAIN OF PAIN, NAUSEA AND VOMITING. ON STANDBY O2 INHALATION @2LPM VIA NC FOR SOB. ON PRIVATE BRANCH EXCHANGE SERVICE ADVISOR WITH CURRENT READING OF: SINUS RHYTHM @72 BPM. ON BLOOD SUGAR MONITORING, NO EPISODES OF HYPO OR HYPERGLYCEMIA NOTED. IV ACCESS ON RFA GAUGE 20 PATENT, INTACT AND FLUSHING NS 1L @ 75ML/HR. SAFETY MEASURES MAINTAINED: BED LOCKED AND IN LOWEST POSITION, SIDE RAILS UP X 2. CALL LIGHT IN EASY REACH FOR HELP. WILL MONITOR PT ACCORDINGLY. ENDORSED TO ART DISPLAY MAKERHEMSTITCHING MACHINE OPERATOR FOR ELIAS.
[2022-10-13 19:06] LABS: CHOLESTEROL 240 mg/dL (<200); HDL CHOLESTEROL 51 mg/dL (40-60); LDL 174 mg/dL (0-99); TRIGLYCERIDES 154 mg/dL (30-150)
--- NOTE | 2022-10-13 19:24 | NUR ---
FLOOR COVERER OPENING NOTES: RECEIVED PT IN BED AWAKE ALERT AND ORIENTED X 3.FAMILY AT BEDSIDE PT INDONESIAN SPEAKING ABLE TO MAKE NEEDS KNOWN.NO SOB/DISTRESS NOTED,IV ACCESS ON RFA GAUGE 20 FLUSHING NS 1L @ 75ML/HR. SAFETY MEASURES MAINTAINED: BED LOCKED AND IN LOWEST POSITION, SIDE RAILS UP X 2. CALL LIGHT WITHIN REACH,WILL CONTINUE TO MONITOR.
[2022-10-13 20:00] VITALS: BP 116/55
[2022-10-14] VITALS: BP 140/75
[2022-10-14] MEDS: IV NS 0.9% 1,000 ML IV SCH (01:57)
[2022-10-14 06:08] LABS: BASOPHILS % (AUTO) 0.8 % (0.0-2.0); HEMATOCRIT 34 % (33-45); HEMOGLOBIN 11.2 g/dL (11.5-14.8); LYMPHOCYTES # (AUTO) 0.7 K/uL (0.8-4.8); LYMPHOCYTES % (AUTO) 16.8 % (20.0-44.0); MEAN CORPUSCULAR HGB CONC 33 g/dl (31.0-36.0); MEAN CORPUSCULAR VOLUME 92 fL (82-100); MONOCYTES # (AUTO) 0.5 K/uL (0.1-1.30); MONOCYTES % (AUTO) 12.6 % (2.0-12.0); NEUTROPHILS # (AUTO) 2.4 K/uL (1.8-8.9); NEUTROPHILS % (AUTO) 60.8 % (43.0-81.0); PLATELET COUNT (AUTO) 251 K/uL (150-450); RED BLOOD CELL COUNT(AUTO) 3.67 MIL/uL (4.0-5.2); WHITE BLOOD COUNT (AUTO) 3.9 K/uL (4.3-11.0)
[2022-10-14 06:11] LABS: CALCIUM, SERUM 8.7 mg/dL (8.5-10.1); CREATININE 1.2 mg/dL (0.6-1.3); POTASSIUM 3.8 mmol/L (3.5-5.1)
--- NOTE | 2022-10-14 06:26 | NUR ---
AEROSPACE MECHANIC CLOSING NOTES; PATIENT IN BED AWAKE ALERT AND ORIENTED X3 RWANDAN SPEAKING ABLE TO MAKE NEEDS KNOWN.NO SOB/DISTRESS NOTED,NO COMPLAINED OF PAIN/DISCOMFORT DURING SHIFT,DUE MEDS GIVEN ORDER,ALL NEEDS ATTENDED,IV ACCESS ON RFA GAUGE 20 WITH NS 75ML/HR INFUSING WELL,SAFETY MEASURES MAINTAINED: BED LOCKED AND IN LOWEST POSITION, SIDE RAILS UP X 2. CALL LIGHT WITHIN REACH,WILL ENDORSED TO NEXT SHIFT.
[2022-10-14] MEDS: BLOOD SUGAR DIAGNOSTIC 1 EACH STRIP VI SCH ×2 (06:30→12:00)
--- NOTE | 2022-10-14 07:45 | NUR ---
SANDSTONE INSPECTOR REPAIRER OPENING NOTES; PATIENT IN BED AWAKE ALERT AND ORIENTED X3 UGANDAN SPEAKING ABLE TO MAKE NEEDS KNOWN.NO SOB/DISTRESS NOTED,NO COMPLAINED OF PAIN/DISCOMFORT AT THIS TIME. IV ACCESS ON RFA GAUGE 20 WITH NS 75ML/HR INFUSING WELL,SAFETY MEASURES MAINTAINED: BED LOCKED AND IN LOWEST POSITION, SIDE RAILS UP X 2. CALL LIGHT WITHIN REACH,WILL CONTINUE TO MONITOR.
[2022-10-14 08:00] VITALS: BP_SYST 143; BP_SYST 191; BP_DIAS 76; BP_DIAS 91
[2022-10-14] MEDS: VALSARTAN 80 MG TABLET PO SCH (09:07)
[2022-10-14] MEDS: HEPARIN SODIUM, PORCINE 5000 UNITS/1 ML VIAL SQ SCH (09:08)
[2022-10-14] MEDS: CEFEPIME 2 GM in IV D5W 100 ML IV SCH (09:09)
--- NOTE | 2022-10-14 11:00 | NUR ---
rn notes RE-INSERTED NEW IV LINE AT RIGHT HAND, PATENT AND INFUSING WELL.
[2022-10-14 11:01] LABS: BILIRUBIN,URINE NEGATIVE (NEGATIVE); COLOR,URINE YELLOW (YELLOW); LEUKOCYTE ESTERASE ,URINE NEGATIVE (NEGATIVE); NITRITE, URINE NEGATIVE (NEGATIVE); PH,URINE 6.5 (5.0-8.0); PROTEIN,URINE 2+ mg/dl (NEGATIVE); UGLUCOSE NEGATIVE (NEGATIVE); UROBILINOGEN,URINE 0.2 EU/dL (0.2)
[2022-10-14 11:20] LABS: BACTERIA,URINE Few /HPF (None Seen); SQUAMOUS EPITHELIAL CELL,UR Few /HPF (None Seen); WBC,URINE 0-2 /HPF (0-3)
[2022-10-14 11:25] LABS: CREATININE, URINE 43.3 MG/DL (30.0-125.0)
[2022-10-14] MEDS: INSULIN REGULAR, HUMAN 100 UNIT/ML 3 ML VIAL SQ PRN (11:50)
[2022-10-14 12:45] VITALS: BP 170/100
--- NOTE | 2022-10-14 12:47 | NUR ---
RN NOTES APRESOLINE ADMINISTERED FOR BP 170/100, WILL MONITOR
[2022-10-14] MEDS ORDERED: INSU100I30 SQ (13:02)
[2022-10-14] MEDS ORDERED: ASPI-1420 PO (13:02)
[2022-10-14] MEDS ORDERED: ROSU20TA2 PO (13:02)
[2022-10-14] MEDS ORDERED: AMOX500T2 PO (13:02)
[2022-10-14] MEDS ORDERED: VALS80TA31 PO (13:02)
--- NOTE | 2022-10-14 14:20 | NUR ---
DISCHARGED NOTE DISCHARGED PATIENT TO HOME IN STABLE CONDITION. A/OX4. ON RA, TOLERATING WELL. VITAL SIGNS TAKEN, STABLE AND RECORDED. PATIENT'S SKIN INTACT, PICTURE TAKEN FOR LEFT FOOT. DENIES PAIN OR DISCOMFORT AT THIS TIME. ALL BELONGINGS ACCOUNTED TO PATIENT . DISCHARGED INSTRUCTION RELAYED TO PATIENT. IV ACCESS REMOVED WITH NO ACTIVE BLEEDING NOTED. PATIENT LEFT THE UNIT VIA WHEELCHAIR ACCOMPANIED BY DAUGHTERS. DISCHARGED.
--- NOTE | 2022-10-14 17:13 | NUR ---
rn notes FAMILY CALLED TO CHANGE THEIR PREFERRED PHARMACY, CALLED [facility] TO NOTIFY THEM OF THE CHANGES. SPOKE TO ALICE ABOUT THE PATIENT'S REQUEST.
== END 2022-10-14 14:30 | disposition home health service (06) | DRG 682 ==
LOC: ER 01:52 → TELE 09:36
PROVIDERS: ADMIT Internal Medicine; ATTEND Legal Medicine
DX: N17.0 Acute kidney failure with tubular necrosis (principal); G92.8 Other toxic encephalopathy; N39.0 Urinary tract infection, site not specified; K80.10 Calculus of gallbladder with chronic cholecystitis without obstruction; N18.9 Chronic kidney disease, unspecified; Z20.822 Contact with and (suspected) exposure to COVID-19; E11.22 Type 2 diabetes mellitus with diabetic chronic kidney disease; E11.319 Type 2 diabetes mellitus with unspecified diabetic retinopathy without macular edema; E11.42 Type 2 diabetes mellitus with diabetic polyneuropathy; E11.65 Type 2 diabetes mellitus with hyperglycemia; I12.9 Hypertensive chronic kidney disease with stage 1 through stage 4 chronic kidney disease, or unspecified chronic kidney disease; E78.5 Hyperlipidemia, unspecified; I25.10 Atherosclerotic heart disease of native coronary artery without angina pectoris; K82.8 Other specified diseases of gallbladder; K21.9 Gastro-esophageal reflux disease without esophagitis; M19.90 Unspecified osteoarthritis, unspecified site; Z79.84 Long term (current) use of oral hypoglycemic drugs; Z79.4 Long term (current) use of insulin; E88.09 Other disorders of plasma-protein metabolism, not elsewhere classified; E86.1 Hypovolemia; G47.00 Insomnia, unspecified; Z91.199 Patient's noncompliance with other medical treatment and regimen due to unspecified reason; E86.0 Dehydration; J32.3 Chronic sphenoidal sinusitis
CPT/HCPCS: 36415; 70450-TC; 70496-TC; 70498-TC; 70551-TC; 71045-TC; 76705-TC; 76770-TC; 78226; 80048-TC; 80053-TC; 80061-TC; 80076-TC; 81001; 82570-TC; 82607-TC; 82962-TC; 83605-TC; 83735-TC; 83921; 84100-TC; 84300-TC; 84443-TC; 84484-TC; 85025-TC; 85730-TC; 87040-TC; 87081-TC; 93307-TC; 97116-TC; 97530-TC; A4223; A9537; C9803; G0378; J0360; J0692; J1644; J1815; J2405; J7030; J7050; J7060; Q9967